=== PATIENT | female | born 1980 | race African-American/Black ===

== ENCOUNTER 2016-12-09 15:19 | Emergency (ER) | payer OTHER ==
[2016-12-09 15:36] VITALS: BMI 23.8
--- NOTE | 2016-12-09 15:39 | PDOC ---
Rapid Medical Evaluation Chief Complaint: Pain, Acute Time Seen by Provider: 12/09/16 15:35 Medical Evaluation: Allergies Allergy/AdvReac Type Severity Reaction Status Date / Time No Known Allergies Allergy Verified 12/09/16 15:31 Vital Signs Temp Pulse Resp BP Pulse Ox 97.9 F 92 H 19 149/81 100 12/09/16 15:31 12/09/16 15:31 12/09/16 15:31 12/09/16 15:31 12/09/16 15:31 12/09/16 15:38 I have performed a brief in-person evaluation of this patient. The patient presents with a chief complaint of: GIB, dark stool, c/o dizziness. Sent in by GI for further evaluation. Pertinent physical exam findings:pale conjunctivae I have ordered the following:cbc, type and screen, lipase, cxr, ekg, cmp The patient will proceed to the ED for further evaluation.
[2016-12-09] MEDS ORDERED: MAG HYDROX/AL HYDROX/SIMETH 30 ML UNIT-DOSE CUP PO ONE (16:30)
[2016-12-09] MEDS ORDERED: PANTOPRAZOLE SODIUM 40 MG in SODIUM CHLORIDE 100 ML IVPB ONE (16:30)
[2016-12-09] MEDS ORDERED: FAMOTIDINE 20 MG/50 ML IVPB 50 ML IVPB ONE ×2 (16:30→16:39)
[2016-12-09] MEDS ORDERED: ACETAMINOPHEN 325 MG TABLET (FP) PO ONE (16:30)
--- NOTE | 2016-12-09 16:37 | PDOC ---
History of Present Illness - General History Source: Patient, Family, Old Records Exam Limitations: No Limitations - History of Present Illness Initial Comments: 12/09/16 16:48 36 year old female with no past medical history sent in by GI physician Dr. Rock for GI bleed workup. Patient reports intermittent epigastric/LUQ pain and intermittently dark, black stools. Reports intermittent ibuprofen use and very little alcohol use. Denies prior endoscopies. The patient reports that she has had persistent pain which she has not taken medications for. She went to Dr. Rock's office, who then directed pt to the ED. Denies fevers, chills, vomiting, diarrhea, dysuria. <Booker Hercules - Last Filed: 12/09/16 18:08> - General History Source: Patient Exam Limitations: No Limitations <Ronan Keyes - Last Filed: 12/09/16 18:26> - General Chief Complaint: Pain, Acute Stated Complaint: PCP SENT, ABD PAIN Time Seen by Provider: 12/09/16 15:35 Past History <Booker Hercules - Last Filed: 12/09/16 18:08> - Past Medical History Other medical history: DENIES. - Psycho/Social/Smoking Cessation Hx Suicidal Ideation: No Smoking History: Never smoked <Ronan Keyes - Last Filed: 12/09/16 18:26> - Past Medical History Allergies/Adverse Reactions: Allergies Allergy/AdvReac Type Severity Reaction Status Date / Time No Known Allergies Allergy Verified 12/09/16 15:31 Home Medications: Ambulatory Orders Pantoprazole Sodium [Protonix] 40 mg PO DAILY #30 tablet. 12/09/16 Ranitidine HCl [Zantac] 150 mg PO BID PRN #20 tablet 12/09/16 Review of Systems - Review of Systems Able to Perform ROS?: Yes Comments:: 12/09/16 16:53 GENERAL/CONSTITUTIONAL: No fever or chills. No weakness. HEAD, EYES, EARS, NOSE AND THROAT: No change in vision. No ear pain or discharge. No sore throat. CARDIOVASCULAR: No chest pain or shortness of breath. RESPIRATORY: No cough, wheezing, or hemoptysis. GASTROINTESTINAL: (+) melena. No nausea, vomiting, diarrhea or constipation. GENITOURINARY: No dysuria, frequency, or change in urination. [employer]ER: (+) Cramping. MUSCULOSKELETAL: No joint or muscle swelling or pain. No neck or back pain. SKIN: No rash NEUROLOGIC: No headache, vertigo, loss of consciousness, or change in strength/ sensation. ENDOCRINE: No increased thirst. No abnormal weight change. HEMATOLOGIC/LYMPHATIC: No anemia, easy bleeding, or history of blood clots. ALLERGIC/IMMUNOLOGIC: No hives or skin allergy. <Booker Hercules - Last Filed: 12/09/16 18:08> *Physical Exam - Vital Signs Last Vital Signs Temp Pulse Resp BP Pulse Ox 97.9 F 92 H 19 149/81 100 12/09/16 15:31 12/09/16 15:31 12/09/16 15:31 12/09/16 15:31 12/09/16 15:31 - Physical Exam Comments: 12/09/16 16:53 GENERAL: Awake, alert, and fully oriented, in no acute distress HEAD: No signs of trauma EYES: PERRLA, EOMI, sclera anicteric, conjunctiva clear ENT: Auricles normal inspection, hearing grossly normal, nares patent, oropharynx clear without exudates. Moist mucosa NECK: Normal ROM, supple, no lymphadenopathy, JVD, or masses LUNGS: Breath sounds equal, clear to auscultation bilaterally. No wheezes, and no crackles HEART: Regular rate and rhythm, normal S1 and S2, no murmurs, rubs or gallops ABDOMEN: (+) Left upper quadrant and epigastric tenderness to palpation. Soft, No guarding, no rebound. No masses RECTAL: (+) No hemorrhoids, no tear, no stool EXTREMITIES: Normal range of motion, no edema. No clubbing or cyanosis. No cords, erythema, or tenderness NEUROLOGICAL: Cranial nerves II through XII grossly intact. Normal speech, normal gait SKIN: Warm, Dry, normal turgor, no rashes or lesions noted. <Booker Hercules - Last Filed: 12/09/16 18:08> - Vital Signs Last Vital Signs Temp Pulse Resp BP Pulse Ox 97.9 F 92 H 19 149/81 100 12/09/16 15:31 12/09/16 15:31 12/09/16 15:31 12/09/16 15:31 12/09/16 15:31 <Ronan Keyes - Last Filed: 12/09/16 18:26> Heart Score/ECG Review #1 ECG reviewed & interpreted by me at: 16:45 12/09/16 17:05 NSR 69, no std/gabriele, no twi, normal axis, normal intervals, QTC 40 msec. normal ECG. <Ronan Keyes - Last Filed: 12/09/16 18:26> ED Treatment Course - LABORATORY CBC & Chemistry Diagram: 12/09/16 16:15 12/09/16 16:15 - ADDITIONAL ORDERS Additional order review: Laboratory Results 12/09/16 16:15 Urine HCG, Qual Negative - RADIOLOGY Radiology Studies Ordered: 12/09/16 18:05 EXAM: RAD/CHEST PA LAT Clinical information: Chest pain. Chest x ray, PA and Lateral Comparison: No prior is available for comparison. Discussion: The cardiac silhouette is within normal limits in size. The lung is clear. Mediastinum and visualized osseous structures appear grossly intact . Impression Unremarkable examination without evidence of acute lung disease. Reported By: Kelly Molina MD <Booker Hercules - Last Filed: 12/09/16 18:08> - LABORATORY CBC & Chemistry Diagram: 12/09/16 16:15 12/09/16 16:15 <Ronan Keyes - Last Filed: 12/09/16 18:26> Medical Decision Making - Medical Decision Making 12/09/16 17:50 First call placed to Dr. Rock's service placed. Phone line was not connecting will try cell. 12/09/16 17:55 First call placed to Dr. Rock's cell placed. Voice mailbox was full, unable to leave message. 12/09/16 18:02 Second called placed to Dr. Rock's service. We were able to get through. Awaiting call back. 12/09/16 18:08 Dr. Rock call into emergency department. Case discussed. Agreed to discharge. <Booker Hercules - Last Filed: 12/09/16 18:08> - Medical Decision Making 12/09/16 16:39 A portion of this note was written by my scribe, under my supervision. Vital Signs Temp Pulse Resp BP Pulse Ox 97.9 F 92 H 19 149/81 100 12/09/16 15:31 12/09/16 15:31 12/09/16 15:31 12/09/16 15:31 12/09/16 15:31 36 year old female with no pmh sent in by GI physician Dr. Rock for GI bleed workup. Pt reports intermittent epigastric/LUQ pain and intermittently dark, black stools. Reports intermittent ibuprofen use and very little alcohol use. Denies prior endoscopies. The patient reports that she has had persistent pain which she has not taken medications for. She went to Dr. rock's office, who then directed pt to the ED. Denies fevers, chills, vomiting, diarrhea, dysuria. Pt reported that she had a CT scan of her abdomen and pelvis for this pain 3 weeks ago which she reports was reportedly unremarkable. I agree with plan to workup for UGIB. Will send stool occult. Pt's rectal exam demonstrates no stool at this time, but no hemorrhoids or tear. Will obtain labs including CBC and type and screen. Will give protonix and GERD medications. Once results return, will touch base with Dr. Rock for disposition. 12/09/16 18:18 CBC, BMP 12/09/16 16:15 12/09/16 16:15 CMP Sodium 141 mmol/L (136-145) 12/09/16 16:15 Potassium 4.0 mmol/L (3.5-5.1) 12/09/16 16:15 Chloride 108 mmol/L (98-107) H 12/09/16 16:15 Carbon Dioxide 28 mmol/L (21-32) 12/09/16 16:15 Anion Gap 5 (8-16) L 12/09/16 16:15 BUN 15 mg/dL (7-18) 12/09/16 16:15 Creatinine 0.7 mg/dL (0.55-1.02) 12/09/16 16:15 Creat Clearance w eGFR > 60 (>60) 12/09/16 16:15 Random Glucose 81 mg/dL (74-106) 12/09/16 16:15 Lactic Acid 0.818 mmol/L (0.4-2.0) 12/09/16 16:15 Calcium 9.1 mg/dL (8.5-10.1) 12/09/16 16:15 Total Bilirubin 0.4 mg/dL (0.2-1.0) 12/09/16 16:15 AST 14 U/L (15-37) L 12/09/16 16:15 ALT 17 U/L (12-78) 12/09/16 16:15 Alkaline Phosphatase 68 U/L (45-117) 12/09/16 16:15 Total Protein 7.5 g/dl (6.4-8.2) 12/09/16 16:15 Albumin 4.0 g/dl (3.4-5.0) 12/09/16 16:15 Lipase 148 U/L (73-393) 12/09/16 16:15 Guiac negative. INR WNL. The GERD medication helped somewhat. However, the patient to take you have some left upper quadrant discomfort. I discussed the case with patient's producer director Dr. Rock instated at this time that the guaiac was negative. After discussing the case at length, we agreed that the patient should have an urgent outpatient follow-up. I discussed the plans with the patient with return precautions given. Patient verbalized that she agrees with plan for likely outpatient endoscopy. We'll prescribe Protonix and Zantac. I discussed the physical exam findings, ancillary test results and final diagnoses with the patient. I answered all of the patient's questions. The patient was satisfied with the care received and felt comfortable with the discharge plan and treatment plan. The patient will call their primary care physician within 24 hours to arrange follow-up and will return to the Emergency Department with any new, persistant or worsening symptoms. <Ronan Keyes - Last Filed: 12/09/16 18:26> *DC/Admit/Observation/Transfer - Attestations Scribe Attestion: 12/09/16 16:53 Documentation prepared by Booker Hercules, acting as medical recruiter for Ronan Keyes MD. <Booker Hercules - Last Filed: 12/09/16 18:08> - Discharge Dispostion Admit: No <Ronan Keyes - Last Filed: 12/09/16 18:26> Diagnosis at time of Disposition: Gastritis Qualifiers: Gastritis type: unspecified gastritis Chronicity: unspecified Gastritis bleeding: without bleeding Qualified Code(s): K29.70 - Gastritis, unspecified, without bleeding - Discharge Dispostion Disposition: HOME Condition at time of disposition: Stable - Prescriptions Prescriptions: Pantoprazole Sodium [Protonix] 40 mg PO DAILY #30 tablet. Ranitidine HCl [Zantac] 150 mg PO BID PRN #20 tablet PRN Reason: GERD - Referrals Referrals: Mikey Mobley [Primary Care Provider] - Maxim Rock MD [Staff Physician] - - Patient Instructions Printed Discharge Instructions: DI for Gastroesophageal Reflux Disease (GERD) Additional Instructions: Your workup in the ED shows no abnormalities at this time. However, it is very very important that you follow up with Dr. Rock because you will likely need an endoscopy. Please take the 40 mg protonix daily even if you don't feel the pain. For additional relief, take 150 mg zantac every 12 hours as needed. Merkel diet. If you have uncontrollable pain or bleeding from the rectum, please return to the ER for further evaluation.
[2016-12-09 16:38] LABS: BASOPHIL 1.1 % (0-2.0); EOSINOPHIL 2.4 % (0-4.5); MCH 25.5 pg (25.7-33.7); MCHC 31.8 g/dl (32.0-36.0); MEAN CELL VOLUME 80.2 fl (80-96); MEAN PLT VOLUME 9.9 fl (7.5-11.1); NEUTROPHILS 50.9 % (42.8-82.8); PLATELET COUNT 194 K/MM3 (134-434); RDW 15.4 % (11.6-15.6); WHITE BLOOD COUNT 4.5 K/mm3 (4.0-10.0)
[2016-12-09] MEDS ORDERED: ACETAMINOPHEN 325 MG TABLET (FP) ONE (16:38)
[2016-12-09] MEDS ORDERED: MAG HYDROX/AL HYDROX/SIMETH 30 ML UNIT-DOSE CUP ONE ×2 (16:38→16:39)
[2016-12-09] MEDS ORDERED: PANTOPRAZOLE SODIUM 100 ML IVPB ONE (16:38)
[2016-12-09 16:47] LABS: INR 1.11 (0.82-1.09); PROTHROMBIN TIME (PATIENT) 12.2 SEC (9.98-11.88)
[2016-12-09 17:03] LABS: ANION GAP 5 (8-16); BILIRUBIN,TOTAL 0.4 mg/dL (0.2-1.0); CALCIUM 9.1 mg/dL (8.5-10.1); CO2 28 mmol/L (21-32); CREATININE 0.7 mg/dL (0.55-1.02); GLUCOSE,RANDOM 81 mg/dL (74-106); SGOT/AST 14 U/L (15-37); SGPT/ALT 17 U/L (12-78); TOT PROT 7.5 g/dl (6.4-8.2)
[2016-12-09 17:04] LABS: ALK PHOS 68 U/L (45-117)
[2016-12-09 19:02] VITALS: BP 130/76; PULSE 70; TEMP 98.3
[2016-12-09 19:44] LABS: PLATELET ESTIMATE ADEQUATE (NORMAL)
--- NOTE | 2016-12-10 10:00 | EKG ---
Test Reason : Blood Pressure : / mmHG Vent. Rate : 069 BPM Atrial Rate : 069 BPM P-R Int : 140 ms QRS Dur : 084 ms QT Int : 374 ms P-R-T Axes : 026 045 051 degrees QTc Int : 400 ms NORMAL SINUS RHYTHM INCOMPLETE RBBB NO PREVIOUS ECGS AVAILABLE Confirmed by ALEX SERRANO MD ([id number]) on 12/10/2016 10:00:21 AM Referred By: Confirmed By:ALEX SERRANO MD
== END 2016-12-09 18:56 | disposition home or self-care (01) ==
LOC: JER 15:19
PROC: 3E033GC Introduction of Other Therapeutic Substance into Peripheral Vein, Percutaneous Approach (ICD-10-PCS; principal; 2016-12-09)
PROC: 3E033GC Introduction of Other Therapeutic Substance into Peripheral Vein, Percutaneous Approach (ICD-10-PCS; 2016-12-09)
DX: K29.70 Gastritis, unspecified, without bleeding (principal)
CPT/HCPCS: 36415; 71020-TC; 80053; 82272; 83605; 83690; 84703; 85025; 85610; 86850; 86900; 86901; 93005; 93010; 99282-25